=== PATIENT | male | born 1955 | race Caucasian/White ===

== ENCOUNTER → 2019-02-14 | Outpatient (CLI) | payer OTHER, BC ==
[~2019-02-14] VITALS: Ht 182.9 cm; Wt 133.8 kg
[~2019-02-14] MED LIST: ASA81BEC PO; COLACE100 MG PO; COUMADIN 2.5MG2.5 M1 PO; COUMADIN 5 MG TA5 M1 PO; FENOFIBRATE145 M1 PO; FISH OIL 1,001000 M3 PO; FUROSEMIDE 20 M20 MG PO; KLOR-CON 10 ER10 MEQ PO; LISINOPRIL2.5 MG PO; LOVENOX60 MG/0.6 SUBQ; METFORMIN HCL500 M3 PO; MIRALAX119 GM PO; SOTALOL 120 MG120 MG PO; SUPER THERAVIT1 EACH PO; ULTRAM50 MG PO; ZYRTEC10 M5 PO
[2019-02-14 14:01] LABS: INR 1.1; PROTIME 11.4 Seconds (9.3-11.4)
--- NOTE | 2019-02-16 16:09 | PATH ---
[facility] [address] [address] PATHOLOGY RPT PROCEDURE Name: LUIS KOWALSKI Room #: REG MELONY Remy#: [id number] Admission: 02/14/19 Date of : 57 Discharge: Report #: [id number] Path Case #: [id number] [facility] Accession Number: [id number] . 01 Material submitted: . stomach - GASTRIC BIOPSY R/O H. PYLORI . 01 Clinical history: . Pre-op diagnosis: History of polyps; dysphagia Post-op diagnosis: Gastric ulcer; esophageal ulcer; hiatal hernia R/O H. pylori . 02 Diagnosis: Gastric mucosa, gastric rule out H. pylori, endoscopic biopsy: - Mild reactive gastropathy. - Negative for intestinal metaplasia or atrophy. - Negative for Helicobacter pylori (properly controlled immunohistochemical stain performed). (IUV:dave; 02/16/2019) MBMasood 02/16/2019 1148 Local . 02 Electronically signed: . Nancy Lopez MD, Pathologist NPI- [id number] . 01 Gross description: . The specimen is received in formalin, labeled "Luis Kowalski, gastric biopsy". Received is a segment of pale morejon soft tissue measuring 0.4 cm in maximum dimensions. The specimen is submitted entirely in cassette A1. (CAA; 02/15/2019) QAC/QA 02/15/2019 0946 Local . 02 Pathologist provided ICD-10: K31.9 . 02 CPT . 731996, [id number] Specimen Comment: A courtesy copy of this report has been sent to Specimen Comment: [phone], . Specimen Comment: Report sent to / DR KNOWLES Performed at: 01 [facility] [address] [id number] MD Jacobo Resendiz MD Phone: [phone] Performed at: [address] [id number] [address] [address] PATHOLOGY RPT PROCEDURE Name: LUIS KOWALSKI Room #: REG MELONY Remy#: [id number] Admission: 02/14/19 Date of : 57 Discharge: Report #: [id number] Path Case #: [id number] MD Nancy Lopez MD Phone: [phone]
== END | disposition home or self-care (01) ==
LOC: GI 11:31
PROVIDERS: Internal Medicine Gastroenterology
DX: Z12.11 Encounter for screening for malignant neoplasm of colon (principal); Z86.010 Personal history of colon polyps; K57.30 Diverticulosis of large intestine without perforation or abscess without bleeding; K64.8 Other hemorrhoids; R13.19 Other dysphagia; K22.2 Esophageal obstruction; K44.9 Diaphragmatic hernia without obstruction or gangrene; K25.9 Gastric ulcer, unspecified as acute or chronic, without hemorrhage or perforation; E11.9 Type 2 diabetes mellitus without complications; J45.909 Unspecified asthma, uncomplicated; G47.30 Sleep apnea, unspecified; Z95.0 Presence of cardiac pacemaker; Z88.8 Allergy status to other drugs, medicaments and biological substances; Z98.890 Other specified postprocedural states; Z79.899 Other long term (current) drug therapy; Z79.01 Long term (current) use of anticoagulants; Z95.2 Presence of prosthetic heart valve; Z88.2 Allergy status to sulfonamides; Z79.82 Long term (current) use of aspirin
CPT/HCPCS: 43239; 43450; G0105; 62110; 62900